=== PATIENT | female | born 1970 ===

== ENCOUNTER 2017-11-02 10:23 | Emergency (ER) | payer MEDICAID ==
[2017-11-02 12:21] LABS: HEPATITIS B SURFACE ANTIGEN NEGATIVE (NEGATIVE)
[2017-11-02 12:39] LABS: HEPATITIS C VIRAL ANTIBODY NEGATIVE (NEGATIVE)
[2017-11-02 12:46] LABS: HIV 1&2 ANTIBODY NEGATIVE (NEGATIVE)
[2017-11-02 14:13] LABS: HEPATITIS B SURFACE ANTIBODY NEGATIVE (NEGATIVE)
== END 2017-11-02 11:53 | disposition home or self-care (01) ==
LOC: E/R 10:23 → FTE 11:53
DX: Z20.6 Contact with and (suspected) exposure to human immunodeficiency virus [HIV] (principal)
CPT/HCPCS: 86703; 86706; 86803; 87340; 99284